=== PATIENT | male | born 1990 | race Two or more races ===

== ENCOUNTER → 2020-06-26 | Outpatient (CLI) | payer SELFPAY | LOC: M LABSMTC 11:12 | PROVIDERS: ATTEND Pediatrics | DX: Z20.828 Contact with and (suspected) exposure to other viral communicable diseases (principal) ==

== ENCOUNTER 2020-10-25 10:39 | Emergency (ER) | payer OTHER, SELFPAY ==
[~2020-10-25] VITALS: Ht 170.2 cm; Wt 93.2 kg
[2020-10-25] MEDS ORDERED: ALLO100T (10:55)
[2020-10-25] MEDS ORDERED: CETI10CA13 PO (10:55)
[2020-10-25] MEDS ORDERED: NAPR220C14 PO (10:55)
[2020-10-25 12:48] LABS: BASO % 0.4 % (0.0-1.0); EOS % 0.2 % (0.0-3.0); HEMATOCRIT 45.4 % (42.0-52.0); HEMOGLOBIN 15.7 g/dl (13.5-17.5); LYMPH # 0.9 10^3/uL (1.5-5.0); LYMPH % 9.7 % (24.0-44.0); MEAN CORPUSCULAR HEMOGLOBIN 29.4 pg (27.0-33.0); MEAN CORPUSCULAR HGB CONC 34.6 g/dl (32.0-36.5); MONO % 10.7 % (2.0-8.0); NEUTROPHILS # 7.6 10^3/uL (1.5-8.5); NEUTROPHILS % 78.5 % (36.0-66.0); PLATELET COUNT, AUTOMATED 185 10^3/uL (150-450); RED BLOOD COUNT 5.34 10^6/uL (4.30-6.10); WHITE BLOOD COUNT 9.7 10^3/uL (4.0-10.0)
[2020-10-25] MEDS ORDERED: NS 1,000 ML IV ONE (12:50)
--- NOTE | 2020-10-25 13:03 | REP ---
INDICATION: Syncope. COMPARISON: None. TECHNIQUE: CT BRAIN PERFORMED IN THE AXIAL PLANE. CORONAL RECONSTRUCTION IMAGES ARE PERFORMED. FINDINGS: THE VENTRICLES ARE NORMAL IN SIZE AND POSITION. THERE IS NO MIDLINE SHIFT OR MASS EFFECT. STUBBS-WHITE DIFFERENTIATION IS WELL MAINTAINED. THERE IS NO ACUTE INTRACRANIAL HEMORRHAGE OR EXTRA-AXIAL FLUID COLLECTION. BONE WINDOW EXAMINATION IS UNREMARKABLE. There is mild fluid in the left maxillary sinus, otherwise the VISUALIZED MASTOID AIR CELLS AND PARANASAL SINUSES ARE CLEAR. IMPRESSION: NEGATIVE NONCONTRAST CT BRAIN. <Electronically signed by Mani Stubbs > 10/25/20 1245
[2020-10-25 13:11] LABS: BLOOD UREA NITROGEN 14 MG/DL (7-18); CARBON DIOXIDE LEVEL 30 MEQ/L (21-32); CHLORIDE LEVEL 104 MEQ/L (98-107); CK-MB VALUE MASS 1.7 NG/ML (<3.6); CPK CREATINE PHOSPHOKINASE 177 U/L (39-308); CREATININE FOR GFR 1.09 MG/DL (0.70-1.30); GLOMERULAR FILTRATION RATE > 60.0 (>60); GLUCOSE, FASTING 98 MG/DL (70-100); MB/CK RELATIVE INDEX 0.96 (< OR =4); POTASSIUM SERUM 4.8 MEQ/L (3.5-5.1); SODIUM LEVEL 137 MEQ/L (136-145); TROPONIN I < 0.02 NG/ML (< 0.10)
[2020-10-25 13:12] LABS: ETHYL ALCOHOL (ETHANOL) < 0.003 % (0.000-0.010)
--- NOTE | 2020-10-25 13:24 | REP ---
INDICATION: Syncope/near-syncope. COMPARISON: None. TECHNIQUE: SINGLE PORTABLE AP VIEW OF THE CHEST WAS PERFORMED. FINDINGS: THERE IS NO ACUTE INFILTRATE OR PULMONARY EDEMA. LUNGS ARE CLEAR. HEART IS NOT SIGNIFICANTLY ENLARGED. MEDIASTINAL SILHOUETTE IS UNREMARKABLE. THE VISUALIZED OSSEOUS STRUCTURES ARE INTACT. IMPRESSION: NO ACUTE PULMONARY DISEASE. <Electronically signed by Mani Stubbs > 10/25/20 0459
[2020-10-25 13:56] LABS: AMPHETAMINES LEVEL URINE NEGATIVE (NEGATIVE); BARBITURATES URINE NEGATIVE (NEGATIVE); BENZODIAZEPINES URINE NEGATIVE (NEGATIVE); CANNABINOIDS URINE NEGATIVE (NEGATIVE); COCAINE METABOLITE URINE NEGATIVE (NEGATIVE); METHADONE URINE NEGATIVE (NEGATIVE); OPIATES URINE NEGATIVE (NEGATIVE); PHENCYCLIDINE URINE NEGATIVE (NEGATIVE)
[2020-10-25 13:59] VITALS: BP 117/73
--- NOTE | 2020-10-25 20:45 | ECGEPIP ---
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
== END 2020-10-25 14:13 | disposition home or self-care (01) ==
LOC: EDSEX 10:39 → EDBD 10:39 → M ED 10:39
DX: R55 Syncope and collapse (principal); Z79.899 Other long term (current) drug therapy

== ENCOUNTER 2021-07-23 04:56 | Emergency (ER) | payer OTHER ==
[~2021-07-23] VITALS: Ht 170.2 cm; Wt 93.7 kg
[~2021-07-23 04:56] MED LIST: ALLO100T; CETI10CA13 PO; NAPR220C14 PO
[2021-07-23 04:59] VITALS: BP 142/90
== END 2021-07-23 10:10 | disposition left against medical advice (07) ==
LOC: M ED 04:56
DX: Z53.21 Procedure and treatment not carried out due to patient leaving prior to being seen by health care provider (principal)